=== PATIENT | female | born 1950 | race Caucasian/White ===

== ENCOUNTER → 2023-10-27 12:19 | Outpatient (REF) | payer MEDICARE, OTHER, SELFPAY | LOC: WDC 12:19 | PROVIDERS: ATTENDING PHYSICIAN Obstetrics & Gynecology; FAMILY PHYSICIAN Nurse Practitioner | DX: Z12.31 Encounter for screening mammogram for malignant neoplasm of breast (principal) | CPT/HCPCS: 77063; 77067 ==

== ENCOUNTER → 2024-05-06 10:18 | Outpatient (REF) | payer MEDICARE, OTHER, SELFPAY ==
[2024-05-06 13:11] LABS: ALT (SGPT) 28 U/L (0-35); AST (SGOT) 40 U/L (14-36); Albumin 4.6 g/dl (3.5-5.0); Alkaline Phosphatase 58 U/L (38-126); Blood Urea Nitrogen 22 mg/dl (7-17); Calcium 9.4 mg/dl (8.4-10.2); Carbon Dioxide 30 mmol/L (22-30); Chloride 99 mmol/L (98-107); Glucose 83 mg/dl (70-99); Potassium 3.7 mmol/L (3.5-5.1); Sodium 143 mmol/L (135-145); Total Bilirubin 1.1 mg/dl (0.2-1.3); Total Protein 6.8 g/dl (6.3-8.2); Vitamin D, 25-OH*** 93.7 ng/mL (30-80); eGFR > 60.00
== END ==
LOC: RAD 10:18
PROVIDERS: ATTENDING PHYSICIAN Surgery; FAMILY PHYSICIAN Nurse Practitioner; REFERRING PHYSICIAN Internal Medicine Endocrinology, Diabetes & Metabolism
DX: N20.0 Calculus of kidney (principal); M81.0 Age-related osteoporosis without current pathological fracture
CPT/HCPCS: 36415; 76775; 80053; 82306

== ENCOUNTER → 2024-05-24 09:35 | Outpatient (REF) | payer MEDICARE, OTHER, SELFPAY ==
[2024-05-24 11:10] LABS: % Basophils 0.4 % (0-2); % Eosinophils 1.2 % (0-6); % Lymphocytes 30.9 % (20.5-51.1); % Monocytes 5.3 % (1.7-9.3); % Neutrophils 62.2 % (42.2-75.2); Absolute Eosinophils 0.1 10^3/uL (0-0.7); Absolute Lymphocytes 1.5 10^3/uL (1.2-3.4); Absolute Monocytes 0.3 10^3/uL (0.1-0.6); Absolute Neutrophils 3.1 10^3/uL (1.4-6.5); Hematocrit 44.5 % (37.0-47.0); Hemoglobin 15.5 g/dL (12.0-16.0); Mean Corp Hgb Conc. 34.8 g/dL (33.0-37.0); Mean Corpuscular Hgb 30.3 pg (27.0-31.0); Mean Corpuscular Volume 86.9 fL (81.0-99.0); Mean Platelet Volume 9.6 fL (7.4-10.4); Nucleated Red Blood Cells % 0 %; Platelet Count 163 10^3/uL (130-400); Red Blood Cell Count 5.12 10^6/uL (4.20-5.40); Red Cell Dist. Width 11.9 % (11.5-14.5)
[2024-05-24 12:04] LABS: ALT (SGPT) 31 U/L (0-35); AST (SGOT) 37 U/L (14-36); Albumin 4.6 g/dl (3.5-5.0); Alkaline Phosphatase 60 U/L (38-126); Blood Urea Nitrogen 22 mg/dl (7-17); Calcium 9.5 mg/dl (8.4-10.2); Carbon Dioxide 32 mmol/L (22-30); Chloride 99 mmol/L (98-107); Glucose 83 mg/dl (70-99); HDL Cholesterol 69 mg/dl; LDL Cholesterol, Calculated 130 mg/dl; Potassium 3.7 mmol/L (3.5-5.1); Sodium 144 mmol/L (135-145); Total Bilirubin 1.1 mg/dl (0.2-1.3); Total Cholesterol 216 mg/dl (50-199); Triglyceride 85 mg/dl (10-149); Very Low Density Lipoprotein 17 mg/dl (0-30); eGFR > 60.00
== END ==
LOC: REG 09:35
PROVIDERS: ATTENDING PHYSICIAN Nurse Practitioner
DX: R53.82 Chronic fatigue, unspecified (principal); Z00.00 Encounter for general adult medical examination without abnormal findings; E78.5 Hyperlipidemia, unspecified; E55.9 Vitamin D deficiency, unspecified
CPT/HCPCS: 36415; 80053; 80061; 82306; 84443; 85025

== ENCOUNTER → 2024-11-01 11:38 | Outpatient (REF) | payer MEDICARE, OTHER, SELFPAY | LOC: WDC 11:38 | PROVIDERS: ATTENDING PHYSICIAN Nurse Practitioner; REFERRING PHYSICIAN Obstetrics & Gynecology | DX: Z12.31 Encounter for screening mammogram for malignant neoplasm of breast (principal) | CPT/HCPCS: 77063; 77067 ==

== ENCOUNTER → 2025-04-18 09:29 | Outpatient (REF) | payer MEDICARE, OTHER, SELFPAY ==
[2025-04-18 09:58] LABS: Hematocrit 41.1 % (37.0-47.0); Hemoglobin 14.1 g/dL (12.0-16.0); Mean Corp Hgb Conc. 34.3 g/dL (33.0-37.0); Mean Corpuscular Volume 84.9 fL (81.0-99.0); Nucleated Red Blood Cells % 0 %; Platelet Count 147 10^3/uL (130-400); Red Cell Dist. Width 12.0 % (11.5-14.5)
[2025-04-18 10:33] LABS: ALT (SGPT) 44 U/L (0-35); AST (SGOT) 40 U/L (14-36); Albumin 4.4 g/dl (3.5-5.0); Alkaline Phosphatase 44 U/L (38-126); Blood Urea Nitrogen 17 mg/dl (7-17); Calcium 9.2 mg/dl (8.4-10.2); Carbon Dioxide 35 mmol/L (22-30); Chloride 102 mmol/L (98-107); Glucose 95 mg/dl (70-99); HDL Cholesterol 64 mg/dl; LDL Cholesterol, Calculated 113 mg/dl; Potassium 4.0 mmol/L (3.5-5.1); Sodium 141 mmol/L (135-145); Total Protein 6.5 g/dl (6.3-8.2); Very Low Density Lipoprotein 8 mg/dl (0-30); eGFR > 60.00
[2025-04-18 11:02] LABS: TSH 1.41 uIU/ml (0.47-4.68)
== END ==
LOC: REG 09:29
PROVIDERS: ATTENDING PHYSICIAN Nurse Practitioner
DX: Z00.00 Encounter for general adult medical examination without abnormal findings (principal); E78.5 Hyperlipidemia, unspecified; E87.6 Hypokalemia; N20.0 Calculus of kidney
CPT/HCPCS: 36415; 80053; 80061; 84443; 85025

== ENCOUNTER → 2025-04-26 10:07 | Outpatient (REF) | payer MEDICARE, OTHER, SELFPAY ==
[2025-04-26 12:30] LABS: ALT (SGPT) 51 U/L (0-35); AST (SGOT) 38 U/L (14-36); Albumin 4.5 g/dl (3.5-5.0); Alkaline Phosphatase 53 U/L (38-126); Blood Urea Nitrogen 22 mg/dl (7-17); Calcium 9.3 mg/dl (8.4-10.2); Carbon Dioxide 33 mmol/L (22-30); Chloride 103 mmol/L (98-107); Glucose 81 mg/dl (70-99); Potassium 3.6 mmol/L (3.5-5.1); Sodium 140 mmol/L (135-145); Total Protein 6.7 g/dl (6.3-8.2); eGFR > 60.00
[2025-04-26 12:46] LABS: Vitamin D, 25-OH*** 103 ng/mL (30-80)
== END ==
LOC: HWLAB 10:07
PROVIDERS: ATTENDING PHYSICIAN Internal Medicine Endocrinology, Diabetes & Metabolism; FAMILY PHYSICIAN Nurse Practitioner
DX: M81.0 Age-related osteoporosis without current pathological fracture (principal)
CPT/HCPCS: 36415; 80053; 82306

== ENCOUNTER → 2025-05-03 09:07 | Outpatient (REF) | payer MEDICARE, OTHER, SELFPAY | LOC: RAD 09:07 | PROVIDERS: ATTENDING PHYSICIAN Surgery; FAMILY PHYSICIAN Nurse Practitioner | DX: N20.0 Calculus of kidney (principal) | CPT/HCPCS: 76775 ==

== ENCOUNTER 2025-05-28 19:25 | Emergency (ER) | payer MEDICARE, OTHER, SELFPAY ==
[2025-05-28 19:29] VITALS: BP 128/73
[2025-05-28 19:57] LABS: Hematocrit 39.4 % (37.0-47.0); Hemoglobin 13.7 g/dL (12.0-16.0); Mean Corp Hgb Conc. 34.8 g/dL (33.0-37.0); Mean Corpuscular Volume 84.0 fL (81.0-99.0); Nucleated Red Blood Cells % 0 %; Platelet Count 160 10^3/uL (130-400); Red Cell Dist. Width 11.9 % (11.5-14.5)
[2025-05-28 20:20] LABS: ALT (SGPT) 32 U/L (0-35); AST (SGOT) 31 U/L (14-36); Albumin 4.2 g/dl (3.5-5.0); Alkaline Phosphatase 59 U/L (38-126); Blood Urea Nitrogen 25 mg/dl (7-17); Calcium 9.9 mg/dl (8.4-10.2); Carbon Dioxide 34 mmol/L (22-30); Chloride 105 mmol/L (98-107); Glucose 138 mg/dl (70-99); Lipase 276 U/L (23-300); Potassium 3.6 mmol/L (3.5-5.1); Sodium 143 mmol/L (135-145); Total Protein 6.4 g/dl (6.3-8.2); eGFR > 60.00
[2025-05-28 20:21] LABS: Troponin I < 0.012 ng/ml
[2025-05-28 21:43] VITALS: BMI 20.7
[2025-05-28 21:45] VITALS: BP 119/74
[2025-05-28 22:00] VITALS: BP 111/68
[2025-05-28] MEDS: NSS 1000 IV (22:31)
[2025-05-28 23:23] LABS: Troponin I < 0.012 ng/ml
--- NOTE | 2025-05-28 23:36 | ED.GENMED ---
History of Present Illness
General
Chief Complaint: Abdominal Symptoms
Source: patient and spouse
Exam Limitations: none
Time Seen by Provider: 05/28/25 22:05
Nursing documentation reviewed up to this point in time: agreed with
History of Present Illness
History of Present Illness:
Note:
CHIEF COMPLAINT(S)
Epigastric pain, nausea, vomiting, lightheadedness, headache, feeling of hot and cold.
HISTORY OF PRESENT ILLNESS
The patient is a 75-year-old female who presented with symptoms that began around 3:00 PM today after dining at a buffet. Patient consumed food items she does not usually eat, such as lasagna, stuffed shells, sausage, and meatballs. Post ingestion,
she started experiencing discomfort in the epigastric region, lightheadedness, headache, and episodes of feeling alternately hot and cold. Symptoms began approximately two hours after eating and progressively worsened. Notably, nausea led to
vomiting while traveling home, necessitating the vehicle to tack puller. Upon reaching home, the patient rested, contemplating whether to seek medical evaluation due to her concern over age-related risks. Consequently, she decided to visit the ""hospital to ensure her safety. Presently, she reports an improvement of about 50%, although not completely resolved.
PAST SURGICAL HISTORY
The patient has undergone a hysterectomy. She confirmed having an intact gallbladder, with no history of abdominal surgeries that could impact current symptoms.
PHYSICAL EXAM
General: Alert, no acute distress.
Skin: Warm, dry.
Head: Normocephalic, atraumatic.
Neck: Supple, trachea midline.
Eye, Ears, Nose, Mouth, and Throat: Oral mucosa moist.
Cardiovascular: Normal peripheral perfusion, no edema.
Respiratory: Respirations are non-labored.
Gastrointestinal: Epigastric tenderness noted.
Back: Normal range of motion, normal alignment.
Musculoskeletal: Normal range of motion, normal strength.
Neurological: Alert and oriented to person, place, time, and situation, no focal neurological deficit observed.
Psychiatric: Cooperative, appropriate mood and affect.
PLAN
Perform an abdominal ultrasound to evaluate for gallbladder issues, given the context of suspected gallbladder pain after consumption of rich foods. Administer intravenous fluids to address dehydration and observe clinical response. Monitor for any
recurrence or exacerbation of symptoms and provide supportive care as needed.
DIFFERENTIAL DIAGNOSIS
The Differential Diagnosis includes, in no particular order and is not limited to:
1. Cholecystitis
2. Gastroenteritis
3. Peptic Ulcer Disease
4. Gastritis
5. Gastroesophageal Reflux Disease (GERD)
6. Pancreatitis
7. Food Poisoning
8. Myocardial Ischemia
9. Migraine
10. Anxiety Disorder
EKG
My independent EKG interpretation is:
- Time of EKG: Not specified
- Rhythm: Normal
- Heart Rate: 75 bpm
- IN Interval: Not specified
- QRS Duration: Not specified
- QT Interval: Not specified
- [place]: Normal
- Abnormalities Observed: No evidence of acute ischemia
- Comparison with Previous EKG: No significant change noted
- Overall Interpretation: Normal EKG
Disposition:
SUMMARY OF ENCOUNTER
The patient is a 75-year-old female who presented to the emergency department experiencing symptoms of epigastric pain, nausea, vomiting, lightheadedness, headache, and alternating feelings of hot and cold after a meal at a buffet. Symptoms began
approximately two hours post-meal and worsened, prompting a visit to the hospital. Based on the initial examination, an abdominal ultrasound was performed to evaluate potential gallbladder issues. The ultrasound showed a mildly contracted
gallbladder without gallstones and no evidence of biliary ductal dilatation, consistent with the patients lab results. Echogenicity was noted in both kidneys, indicating nephrolithiasis, alongside several cysts in the left kidney. The patient
received intravenous fluids for dehydration, and her symptoms improved significantly during her stay in the emergency department.
DISPOSITION
Patient to be discharged home.
ASSESSMENT
The patient is suspected of experiencing cholecystitis or gastritis related to the recent intake of unusual, rich foods, considering the ultrasound findings and symptomatology.
PLAN
The plan includes discharge with instructions for self-care, ensuring adequate hydration, and monitoring for any recurrence of symptoms. Recommend follow-up with a primary care provider or solder technician for further evaluation if symptoms
reoccur or new symptoms develop.
INDEPENDENT REVIEW OF LABS AND INTERPRETATION OF TESTS
My independent interpretation of the abdominal ultrasound shows a contracted gallbladder with no evidence of gallstones, and no biliary ductal dilatation. Echogenicity in both kidneys suggests nephrolithiasis, with several cysts present in the left
kidney.
MEDICATION RECONCILIATION
The patient received intravenous fluids during the emergency department visit to address dehydration.
MEDICAL DECISION MAKING
- Complexity of Data Reviewed: The patients presentation suggests potential differential diagnoses including cholecystitis, gastritis, gastroduodenal pathology (such as ulcers), and nephrolithiasis affecting care.
- Data:
Category 1
My independent interpretation of the abdominal ultrasound indicated a contracted gallbladder with nephrolithiasis and renal cysts without acute complications.
Category 3
Considerations regarding the management of the symptoms and imaging findings were discussed, taking into account the patients overall improvement and stability.
DIAGNOSIS
- Cholecystitis (K81.9)
- Nephrolithiasis (N20.0)
- Renal cysts (N28.1)
Past History
Past History
ED Past Medical History: Other (kidney stones, diverticulitis); Negative CAD, IDDM or NIDDM
ED Past Surgical History: Gynecological (total Hysterectomy), Orthopedic (Right knee surgery, Bilateral arm surgery) and Other (Face lift)
Social History
Tobacco: Non-smoker
Alcohol: None
Personal:
Living: with family
Family History
Family History: Other (Mother with colon cancer)
Phy Exam
Physical Exam
Physical Exam:
.
Course
Orders/Labs/Results
Orders:
Orders
05/28/25 19:35
EKG [Electrocardiogram (*1)] Urgent
Reason for Study: Tachycardia
EKG- Treatment ONCE
05/28/25 19:46
Complete Blood Count/With Diff Urgent
Comprehensive Metabolic Panel Urgent
Lipase Urgent
Troponin I Urgent
05/28/25 22:18
0.9% Sodium Chloride 1000 ml [Nss] 1,000 ml IV BOLUS
US Abdomen Complete/Upper Urgent
Comment:
Reason For Exam: RUQ/Epigastric pain
05/28/25 22:19
Electrocardiogram (*1) Urgent
Reason for Study: Abdominal Pain
EKG- Treatment ONCE
05/28/25 22:29
Troponin I Urgent
Abnormal Lab Results
05/28/25
19:46
Absolute Neuts (auto) 6.6 H 10^3/uL
(1.4-6.5)
Absolute Lymphs (auto) 0.9 L 10^3/uL
(1.2-3.4)
Neutrophils % 85.2 H %
(42.2-75.2)
Lymphocytes % 11.1 L %
(20.5-51.1)
Carbon Dioxide 34 H mmol/L
(22-30)
BUN 25 H mg/dl
(7-17)
Glucose 138 H mg/dl
(70-99)
05/28/25 19:46
05/28/25 19:46
Vital Signs
Initial and Last Documented VS:
Initial Vital Signs
Temp Pulse Resp BP Pulse Ox
97.4 F 76 18 128/73 99
05/28/25 19:29 05/28/25 19:29 05/28/25 19:29 05/28/25 19:29 05/28/25 19:29
Last Documented Vital Signs
Temp Pulse Resp BP Pulse Ox
97.4 F 73 15 117/69 98
05/28/25 19:29 05/28/25 23:45 05/28/25 23:45 05/28/25 23:43 05/28/25 23:49
*Pulse Oximetry
SaO2: 99
Oxygen Mode of Delivery: Room air
Patient hypoxic: no
*Critical Care Note
Total Time (30-74mins, 75-104mins- exclusive of procedures): Not Applicable
ED Attending Note
-
Portions of this chart may have been created with voice recognition software.� Occasional wrong word or��sound alike� substitutions may have occurred due to the inherent limitations of voice recognition software.
Discharge Plan
Departure
Patient Disposition: Home (Routine Discharge)
Date of Disposition: 05/28/25
Time of Disposition: 23:36
Patient with high blood pressure during this ER visit?: No
Condition: Good
Discharge Problem:
Epigastric pain
Instructions: Nausea and Vomiting, Adult (DC), Abdominal Pain
Prescriptions:
No Action
hydrochlorothiazide 12.5 MG tablet
12.5 mg PO DAILY
Prevagen
1 tab PO DAILY
omeprazole 40 mg Capsule,Delayed Release(Dr/Ec)
40 mg PO DAILY
ipratropium bromide 21 mcg (0.03 %) [place],Non-Aerosol
2 spray INTRANASAL BID
acetaminophen [Tylenol Extra Strength] 500 mg Tablet
1,000 mg PO QID PRN (Reason: mild pain)
phenazopyridine [Urinary Pain Relief] 95 mg Tablet
190 mg PO TID PRN (Reason: pain relief)
oseltamivir 75 mg Capsule
75 mg PO BID Qty: 4 0RF
Referrals:
Elissa Beckford CRNP [Family Provider, Internal Medicine]
Activity Restrictions/Additional Instructions:
Thank You for choosing [facility].
It was a pleasure meeting you and taking part in your care. We hope for your continued healing and wellness.
Please read discharge instructions in their entirety. However, they are for general education and may not describe your exact diagnosis at discharge. Information on your ER visit and medical conditions were discussed with you along with appropriate
follow up information...
If indicated, please take your medications as instructed and indicated on discharge paperwork.
Please schedule a follow up appointment as directed. Call to schedule an appointment
Please return to the emergency department with ANY change in, persisting, or worsening of symptoms. If any of your symptoms do not improve, or persist, or become more severe within 6-12 hours, please return to the emergency department for further
care.
Please return to the emergency department if you develop a headache, neck pain/stiffness, fever greater than 100.4F, chest pain, shortness of breath, persistent nausea, vomiting, slurred speech, difficulty walking, numbness/tingling, weakness, signs
of infection or any other symptoms that are worrisome to you.
If you have any questions or concerns please do not hesitate to call the Hospital at .
Interventions
Interventions:
*Risk Screen - Suicide Last Done: 05/28/25 19:29
*General Assessment Last Done: 05/28/25 19:29
*Neglect/Abuse Screening Last Done: 05/28/25 19:29
*ED- Fall Risk Assessment Last Done: 05/28/25 19:29
*ED COVID-19 Vaccine History Last Done: 05/28/25 19:29
*Nursing Disposition Last Done: 05/28/25 23:49
PP-[place] Assessment Last Done: 05/28/25 21:47
Discharge Date and Time
Discharge Date/Time: 05/28/25 23:51
Print Language: TURKISH
[2025-05-28 23:43] VITALS: BP 117/69
== END 2025-05-28 23:51 | disposition home or self-care (01) ==
LOC: EMR 19:25
PROVIDERS: Emergency Medicine; EMERGENCY PHYSICIAN Student in an Organized Health Care Education/Training Program; FAMILY PHYSICIAN Nurse Practitioner
DX: R10.13 Epigastric pain (principal); R11.2 Nausea with vomiting, unspecified; R42 Dizziness and giddiness; Z87.442 Personal history of urinary calculi
CPT/HCPCS: 99284; 96360; 76700; 80053; 83690; 84484; 85025; 93005

== ENCOUNTER → 2025-06-01 10:16 | Outpatient (REF) | payer MEDICARE, OTHER, SELFPAY | LOC: RAD 10:16 | PROVIDERS: ATTENDING PHYSICIAN Internal Medicine Endocrinology, Diabetes & Metabolism; FAMILY PHYSICIAN Nurse Practitioner | DX: M81.0 Age-related osteoporosis without current pathological fracture (principal) | CPT/HCPCS: 77080; 77081 ==

== ENCOUNTER → 2025-08-30 11:24 | Outpatient (REF) | payer MEDICARE, OTHER, SELFPAY | LOC: REG 11:24 | PROVIDERS: ATTENDING PHYSICIAN Surgery; FAMILY PHYSICIAN Nurse Practitioner | DX: N20.0 Calculus of kidney (principal) | CPT/HCPCS: 81050; 82340; 82436; 82507; 83735; 83945; 83986; 84105; 84133; 84300; 84392; 84560 ==